=== PATIENT | female | born 1955 | race Hispanic/Latino ===

== ENCOUNTER 2018-10-02 16:29 | Emergency (ER) | payer BC, OTHER ==
[2018-10-02 16:55] VITALS: BMI 33.1
--- NOTE | 2018-10-02 17:34 | ED PDOC ---
Arrival/HPI - General Chief Complaint: Medical Clearance Time Seen by Provider: 10/02/18 16:31 Historian: Patient - History of Present Illness Narrative History of Present Illness (Text): 10/02/18 17:34 62yr old female presents today with needlestick to the left thumb. 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 pt states she thought she saw plastic on the ground and went to pick it up and sustained puncture. patient states there was a small drop of blood noted at site of puncture. pt states she cleaned the wound well. pt states tetanus is up to date. pt denies pain at site of injury. no other complaints. Time/Duration: Prior to Arrival Symptom Onset: Sudden Symptom Course: Unchanged Past Medical History - Provider Review Nursing Documentation Reviewed: Yes - Travel History Have you recently traveled outside [place] w/in the past 3 mons?: No - Infectious Disease Hx of Infectious Diseases: None - Tetanus Immunization Tetanus Immunization: Up to Date - Cardiac Hx Cardiac Disorders: Yes Hx Hypertension: Yes - Pulmonary Hx Respiratory Disorders: No - Neurological Hx Neurological Disorder: Yes Other/Comment: Sciatica - HEENT Hx HEENT Disorder: No - Renal Hx Renal Disorder: No - Endocrine/Metabolic Hx Endocrine Disorders: No - Hematological/Oncological Hx Blood Disorders: No - Integumentary Hx Dermatological Disorder: No - Musculoskeletal/Rheumatological Hx Musculoskeletal Disorders: No - Gastrointestinal Hx Gastrointestinal Disorders: No - Genitourinary/Gynecological Hx Genitourinary Disorders: No - Psychiatric Hx Psychophysiologic Disorder: No Hx Substance Use: No - Suicidal Assessment Feels Threatened In Home Enviroment: No Family/Social History - Physician Review Nursing Documentation Reviewed: Yes Family/Social History: Unknown Family HX Smoking Status: Heavy Smoker > 10 Cigarettes Daily Hx Alcohol Use: No Hx Substance Use: No Allergies/Home Meds Allergies/Adverse Reactions: Allergies No Known Allergies Allergy (Verified 10/02/18 16:36) Home Medications: Home Meds Medication Instructions Recorded Confirmed Gabapentin [Neurontin] 100 mg PO DAILY 10/02/18 10/02/18 amLODIPine [Norvasc] 5 mg PO DAILY 10/02/18 10/02/18 Review of Systems - Review of Systems Constitutional: absent: Fatigue, Fevers Respiratory: absent: SOB, Cough Cardiovascular: absent: Chest Pain, Palpitations Gastrointestinal: absent: Abdominal Pain, Nausea, Vomiting Musculoskeletal: absent: Back Pain, Neck Pain Skin: Other (puncture wound left thumb) Physical Exam Vital Signs Reviewed: Yes Vital Signs Temp Pulse BP Pulse Ox 10/02/18 16:38 98.2 F 90 121/87 98 Temperature: Afebrile Blood Pressure: Normal Pulse: Regular Respiratory Rate: Normal Appearance: Positive for: Well-Appearing, Non-Toxic, Comfortable Pain Distress: None Mental Status: Positive for: Alert and Oriented X 3 - Systems Exam Head: Present: Atraumatic Mouth: Present: Moist Mucous Membranes Respiratory/Chest: Present: Clear to Auscultation Cardiovascular: Present: Regular Rate and Rhythm Upper Extremity: Present: Normal Inspection, Normal ROM, Capillary Refill < 2s. No: Tenderness, Swelling, Erythema Neurological: Present: GCS=15, Speech Normal Skin: Present: Warm, Dry, Normal Color Psychiatric: Present: Alert, Oriented x 3 Medical Decision Making ED Course and Treatment: 10/02/18 17:37 pt presents with puncture wound to left thumb from insulin autoinjector needle found on the ground. pt cleaned wound well prior to arrival. no signs of infection. no visible puncture wound noted on examination. cbc: wnl cmp: wnl. LFTS w nl. rapid HIV; negative source patient: unknown. pt was offered HIV prophylaxis. I discussed in depth the risks and benefits of HIV prophylaxis. pt was made aware that the risk of jazlyn HIV exists due to needlestick. pt was made aware that taking HIV prophylaxis will prevent jazlyn HIV due to recent needlestick. I discussed the side Effects associated with the HIV prophylaxis medications in depth with the patient. I discussed the benefits of taking the HIV prophylactic medications with the patient. I've advised the patient that the earlier she starts HIV prophylaxis the lower the chances are of jazlyn HIV. Patient states that she does not want to take HIV prophylaxis at this time and she will follow-up with her primary care physician tomorrow for a second opinion. Patient states she will take the prescription for the medications and if her doctor suggests that she starts taking the medications she will fill the prescription. I stressed that the patient has up to 72 hours to start HIV prophylaxis and again reiterated that the sooner she starts the medication the lower her chances are of jazlyn HIV. Patient verbalizes understanding of discharge instructions and need for immediate followup. all aspects of this case were discussed the attending of record. Impression: Needlestick, puncture wound finger keep wound clean and dry apply bacitracin twice daily truvada once daily x 28 days Raltegravir: 1 tablet twice daily x 28 days Follow up with the primary care physician tomorrow. Follow up with employee health. return immediately if any concerning symptoms develop. Disposition/Present on Arrival - Present on Arrival Any Indicators Present on Arrival: No History of DVT/PE: No History of Uncontrolled Diabetes: No Urinary Catheter: No History of Decub. Ulcer: No History Surgical Site Infection Following: None - Disposition Have Diagnosis and Disposition been Completed?: Yes Diagnosis: Puncture wound of finger, Needlestick injury accident Disposition: HOME/ ROUTINE Disposition Time: 17:28 Patient Plan: Discharge Condition: GOOD Additional Instructions: keep wound clean and dry apply bacitracin twice daily truvada once daily x 28 days Raltegravir: 1 tablet twice daily x 28 days Follow up with the primary care physician tomorrow. Follow up with employee health. return immediately if any concerning symptoms develop. Prescriptions: Emtricitabine/Tenofovir Diso [Truvada 200 MG-300 MG] 1 tab PO DAILY #28 tab Raltegravir Potassium [Isentress] 400 mg PO BID #56 tab Referrals: Steve Angel MD [Staff Provider] - Follow up with primary Rona Vieyra MD [Medical Doctor] - Follow up with primary [facility] [Outside] - Follow up with primary Forms: [facility] (Congolese), WORK NOTE
[2018-10-02 18:28] LABS: BASO # 0.02 K/mm3 (0.0-2.0); BASO % 0.3 % (0.0-3.0); EOS # 0.1 (0.0-0.7); GRAN # 4.37 (1.4-6.5); GRAN % 59.5 % (50.0-68.0); HEMOGLOBIN 13.7 g/dL (12.0-16.0); LYMPH # 2.5 (1.2-3.4); LYMPH % 33.5 % (22.0-35.0); MEAN CELL VOLUME 91.3 fl (80.0-105.0); MEAN CORPUSCULAR HEMOGLOBIN 29.9 pg (25.0-35.0); MEAN CORPUSCULAR HGB CONC 32.8 g/dl (31.0-37.0); MEAN PLATELET VOLUME 10.1 fl (7.0-11.0); MONO # 0.4 (0.1-0.6); MONO % 5.7 % (1.0-6.0); RBC 4.58 10^6/uL (3.5-6.1); RED CELL DISTRIBUTION WIDTH 13.6 % (11.5-14.5); WHITE BLOOD COUNT 7.3 10^3/uL (4.5-11.0)
[2018-10-02 18:32] LABS: ALB/GLOB RATIO 1.3 (1.1-1.8); ALBUMIN 4.6 g/dL (3.0-4.8); ALT/SGPT 20 U/L (7-56); AST/SGOT 24 U/L (14-36); BLOOD UREA NITROGEN 14 mg/dL (7-21); CALCIUM 9.7 mg/dL (8.4-10.5); GFR NON-AFRICAN AMERICAN > 60; URINE BILIRUBIN NEGATIVE (NEGATIVE); URINE BLOOD NEGATIVE (NEGATIVE); URINE GLUCOSE (UA) NEGATIVE (NEGATIVE); URINE LEUKOCYTE ESTERASE NEGATIVE Leu/uL (NEGATIVE); URINE PROTEIN NEGATIVE mg/dL (<30 mg/dL); URINE UROBILINOGEN 0.2 E.U./dL (<1 E.U./dL)
[2018-10-02 18:35] LABS: URINE APPEARANCE CLEAR (CLEAR); URINE COLOR LIGHT YELLOW (YELLOW)
[2018-10-02 19:23] VITALS: BP 126/84; PULSE 77; RESP 18; TEMP 97.8; O2SAT 95
[2018-10-02 21:22] LABS: HEPATITIS B SURFACE AG Negative (NEGATIVE)
[2018-10-02 21:28] LABS: HEPATITIS A IGM NEGATIVE (NEGATIVE); HEPATITIS B CORE AB NEGATIVE (NEGATIVE)
[2018-10-02 21:39] LABS: HEPATITIS C ANTIBODY NEGATIVE (NEGATIVE)
== END 2018-10-02 19:25 | disposition home or self-care (01) ==
LOC: ED 16:29
DX: S61.032A Puncture wound without foreign body of left thumb without damage to nail, initial encounter (principal); W46.0XXA Contact with hypodermic needle, initial encounter; Y93.H9 Activity, other involving exterior property and land maintenance, building and construction; Y92.219 Unspecified school as the place of occurrence of the external cause; Y99.0 Civilian activity done for income or pay